=== PATIENT | male | born 1975 | race Caucasian/White ===

== ENCOUNTER 2019-02-07 06:56 | Emergency (ER) | payer MEDICAID, OTHER ==
[2019-02-07] MEDS ORDERED: diphenhydrAMINE 50 MG/ML 1 ML VIAL IVP STA (07:08)
[2019-02-07] MEDS ORDERED: methylPREDNISolone SOD SUCCI 125 MG/2 ML VIAL IV STA (07:08)
[2019-02-07] MEDS ORDERED: FAMOTIDINE 20 MG/2 ML VIAL IV STA (07:08)
[2019-02-07] MEDS ORDERED: SODIUM CHLORIDE 0.9% 1,000 ML IV ONE (07:09)
[2019-02-07] MEDS ORDERED: cefTRIAXone IN SWFI 1,000 MG/10 ML SYRINGE IVP STA (07:09)
--- NOTE | 2019-02-07 07:18 | ED ---
ENT HPI - General Chief complaint: ENT Stated complaint: Sore Throat, Difficulty Breathing Time Seen by Provider: 02/07/19 07:05 Source: patient, RN notes reviewed Mode of arrival: ambulatory Limitations: no limitations - History of Present Illness Initial comments: 43-year-old male presents emergency Department chief complaint of throat swelling. Patient states he slept with the window open a fan on. Patient states he woke up and he states he has difficulty swallowing. Patient states his uvula is very swollen. He states it has gone down since taking some ibuprofen. Patient denies fever, chills, headache or dizziness. Patient states never had any like this in the past no prior throat surgeries including adenoidectomy or tonsillectomy. Patient does admit that he sleeps with his mouth open and may have underlying sleep apnea. - Related Data Home Medications Medication Instructions Recorded Confirmed Metoprolol Tartrate [Lopressor] 100 mg PO BID 02/07/19 02/07/19 Previous Rx's Medication Instructions Recorded Azithromycin [Zithromax Z-pack] 0 mg PO DIRECTED #1 pack 02/07/19 predniSONE 50 mg PO DAILY #5 tab 02/07/19 Allergies Allergy/AdvReac Type Severity Reaction Status Date / Time Penicillins Allergy Rash/Hives Verified 02/07/19 07:31 Review of Systems ROS Statement: Those systems with pertinent positive or pertinent negative responses have been documented in the HPI. ROS Other: All systems not noted in ROS Statement are negative. Past Medical History Past Medical History: Hypertension History of Any Multi-Drug Resistant Organisms: None Reported Past Surgical History: No Surgical Hx Reported Past Psychological History: No Psychological Hx Reported Smoking Status: Never smoker Past Alcohol Use History: Occasional Past Drug Use History: None Reported General Exam Limitations: no limitations General appearance: alert, in no apparent distress Head exam: Present: atraumatic, normocephalic, normal inspection Eye exam: Present: normal appearance, PERRL, EOMI. Absent: scleral icterus, conjunctival injection, periorbital swelling ENT exam: Present: mucous membranes moist, TM's normal bilaterally, normal external ear exam. Absent: normal oropharynx (Edematous uvula, patient notes noted to be gagging, no drooling, swallowing secretions well, mild erythema) Neck exam: Present: normal inspection, full ROM. Absent: tenderness, meningismus, lymphadenopathy Respiratory exam: Present: normal lung sounds bilaterally. Absent: respiratory distress, wheezes, rales, rhonchi, stridor Cardiovascular Exam: Present: regular rate, normal rhythm, normal heart sounds. Absent: systolic murmur, diastolic murmur, rubs, gallop, clicks Neurological exam: Present: alert, oriented X3, CN II-XII intact Skin exam: Present: warm, dry, intact, normal color. Absent: rash Course Vital Signs 02/07/19 02/07/19 02/07/19 07:01 08:20 08:28 Temperature 98.8 F Pulse Rate 60 60 64 Respiratory 20 Rate Blood Pressure 161/85 O2 Sat by Pulse 97 Oximetry 02/07/19 09:24 Temperature Pulse Rate 60 Respiratory 20 Rate Blood Pressure 151/93 O2 Sat by Pulse 98 Oximetry Medical Decision Making - Medical Decision Making 43-year-old male presented for swelling of his throat. Patient has evidence of uvulitis. Patient was given racemic epinephrine, Solu-Medrol, Pepcid, Benadryl he does feel improved there is still mild amount of swelling currently. He states is notably breathing or difficulty swallowing. He was offered observation for repeat treatments and steroids he states he forgot home at this time. We did discuss close follow-up and strict return parameters. Disposition Clinical Impression: Uvulitis Disposition: HOME SELF-CARE Condition: Stable Instructions (If sedation given, give patient instructions): Uvulitis (ED) Additional Instructions: Please return to the Emergency Department if symptoms worsen or any other concerns. Prescriptions: predniSONE 50 mg PO DAILY #5 tab Azithromycin [Zithromax Z-pack] 0 mg PO DIRECTED #1 pack Is patient prescribed a controlled substance at d/c from ED?: No Referrals: None,Stated [Primary Care Provider] - 1-2 days Time of Disposition: 11:04
[2019-02-07] MEDS ORDERED: RACEPINEPHRINE 2.25% NEB 0.5 ML NEBU INHALATION STA (07:44)
--- NOTE | 2019-02-07 09:05 | XR ---
EXAMINATION TYPE: XR soft tissue neck DATE OF EXAM: 02/07/2019 COMPARISON: NONE HISTORY: Sore and swollen throat. Difficulty breathing since yesterday TECHNIQUE: 2 views of the soft tissues of the neck were obtained FINDINGS: There is straightening of usual cervical lordosis. No prevertebral soft tissue swelling is seen. No narrowing of the nasopharynx nor epiglottic airway. The epiglottis is unremarkable in size. Vallecula is visualized. Infraglottic airway appears grossly patent. Lung apices also appear well aer ated. IMPRESSION: No abnormal prevertebral soft tissue swelling nor narrowing of the supraglottic or infrag lottic visualized airway. Nasopharyngeal airway also appears patent.
[2019-02-07] MEDS ORDERED: hydrALAZINE HCL 20 MG/ML 1 ML VIAL IVP STA (11:01)
[2019-02-07 11:02] VITALS: RESP 16; TEMP 98.7
[2019-02-07 11:21] VITALS: BP 149/103; PULSE 73
== END 2019-02-07 11:15 | disposition home or self-care (01) ==
LOC: EC 06:56
DX: K12.2 Cellulitis and abscess of mouth (principal); I10 Essential (primary) hypertension; Z88.0 Allergy status to penicillin; Z79.899 Other long term (current) drug therapy
CPT/HCPCS: 94640; 70360; 99285; 96374; 96375 ×4; 96361; J0360; J1200; J2930; J0696

== ENCOUNTER 2020-05-05 01:58 | Emergency (ER) | payer OTHER ==
[2020-05-05 02:07] VITALS: BP 153/90; PULSE 79; RESP 18; TEMP 98.9
[2020-05-05] MEDS ORDERED: HYDROmorphone 1 MG/ML 1 ML SYRINGE IM STA (02:30)
[2020-05-05] MEDS ORDERED: diazePAM 5 MG TAB PO STA (02:30)
[2020-05-05] MEDS ORDERED: IBUPROFEN 800 MG TAB PO STA (02:30)
[2020-05-05] MEDS ORDERED: dexAMETHasone 4 MG TAB PO STA (02:30)
--- NOTE | 2020-05-05 02:31 | ED ---
Back Pain HPI - General Chief Complaint: Back Pain/Injury Stated Complaint: Back pain Time Seen by Provider: 05/05/20 02:09 Source: patient, RN notes reviewed, old records reviewed Limitations: no limitations - History of Present Illness Initial Comments: This is a 45-year-old male DF for evaluation patient to the ER for evaluation of significant back pain chronic acute on chronic back pain no new trauma. Pain worse today times last 2 or 3 days. Difficult to ambulate. No new traumas. No loss of bowel or bladder. No fevers. MD Complaint: back pain -: days(s) Similar Symptoms Previously: Yes Place: home Radiation: none Severity: severe Severity scale (1-10): 10 Quality: sharp Consistency: constant Improves With: immobilization Worsens With: movement, walking Context: while lifting, turning/twisting Associated Symptoms: denies other symptoms - Related Data Home Medications Medication Instructions Recorded Confirmed Metoprolol Tartrate [Lopressor] 100 mg PO BID 02/07/19 02/07/19 Previous Rx's Medication Instructions Recorded Azithromycin [Zithromax Z-pack] 0 mg PO DIRECTED #1 pack 02/07/19 predniSONE 50 mg PO DAILY #5 tab 02/07/19 Allergies Allergy/AdvReac Type Severity Reaction Status Date / Time Penicillins Allergy Rash/Hives Verified 05/05/20 02:07 Review of Systems ROS Statement: Those systems with pertinent positive or pertinent negative responses have been documented in the HPI. ROS Other: All systems not noted in ROS Statement are negative. Past Medical History Past Medical History: Hypertension History of Any Multi-Drug Resistant Organisms: None Reported Past Surgical History: No Surgical Hx Reported Past Psychological History: No Psychological Hx Reported Smoking Status: Never smoker Past Alcohol Use History: None Reported Past Drug Use History: Marijuana General Exam Limitations: no limitations General appearance: alert, in no apparent distress Head exam: Present: atraumatic, normocephalic, normal inspection Eye exam: Present: normal appearance, PERRL, EOMI. Absent: scleral icterus, conjunctival injection, periorbital swelling ENT exam: Present: normal exam, mucous membranes moist Neck exam: Present: normal inspection. Absent: tenderness, meningismus, lymphadenopathy Respiratory exam: Present: normal lung sounds bilaterally. Absent: respiratory distress, wheezes, rales, rhonchi, stridor Cardiovascular Exam: Present: regular rate, normal rhythm, normal heart sounds. Absent: systolic murmur, diastolic murmur, rubs, gallop, clicks GI/Abdominal exam: Present: soft, normal bowel sounds. Absent: distended, tenderness, guarding, rebound, rigid Extremities exam: Present: normal inspection, full ROM, normal capillary refill. Absent: tenderness, pedal edema, joint swelling, calf tenderness Back exam: Present: normal inspection Neurological exam: Present: alert, oriented X3, CN II-XII intact Psychiatric exam: Present: normal affect, normal mood Skin exam: Present: warm, dry, intact, normal color. Absent: rash Course Vital Signs 05/05/20 02:03 Temperature 98.9 F Pulse Rate 79 Respiratory 18 Rate Blood Pressure 153/90 O2 Sat by Pulse 94 L Oximetry - Reevaluation(s) Reevaluation #1: 05/05/20 03:03 Medical records reviewed Reevaluation #2: 05/05/20 03:03 Patient's pain is well-controlled and is able to amply without difficulty Reevaluation #3: 05/05/20 03:04 Patient informed of results and questions answered Medical Decision Making - Medical Decision Making 45 male acute on chronic back pain pain is controlled we'll treat pain at home w ith pain medication he can be discharged home - Radiology Data Radiology results: report reviewed (CT lumbar spine is chronic disc disease no herniation), image reviewed Disposition Clinical Impression: Mechanical back pain, Strain of lumbar region, Sciatica Disposition: HOME SELF-CARE Condition: Good Instructions (If sedation given, give patient instructions): Acute Low Back Pain (ED) Is patient prescribed a controlled substance at d/c from ED?: No Referrals: Emely Nazario MD [Primary Care Provider] - 1-2 days
--- NOTE | 2020-05-05 02:57 | CT ---
EXAMINATION TYPE: CT lumbar spine wo con DATE OF EXAM: 05/05/2020 COMPARISON: CT abdomen 01/08/2010 HISTORY: pain CT DLP: 1774.4 mGycm Automated exposure control for dose reduction was used. Images were obtained from the level of T11-S3 vertebra without contrast. Vertebra have normal alignment. There is narrowing of L5-S1 disc with vacuum disc and mild spurring. There is no compression fracture. The posterior elements are intact. The sacroiliac joints are intact . I see no bony destructive process. There is no lumbar paraspinal mass. Sacroiliac joints appear int act. There is no spinal stenosis. IMPRESSION: Minor degenerative disc changes in the lumbar spine mainly at L5-S1. No fracture seen. No spinal sten osis. No sign of any significant lumbar disc herniation.
[2020-05-05] MEDS ORDERED: traMADol 50 MG STARTER PACK 3 TAB BTL PO STA (03:02)
== END 2020-05-05 03:17 | disposition home or self-care (01) ==
LOC: EC 01:58
DX: S39.012A Strain of muscle, fascia and tendon of lower back, initial encounter (principal); G89.29 Other chronic pain; I10 Essential (primary) hypertension; Z79.899 Other long term (current) drug therapy; Z88.0 Allergy status to penicillin; X58.XXXA Exposure to other specified factors, initial encounter
CPT/HCPCS: 72131; 99284; 96372; J8540; J1170

== ENCOUNTER → 2020-10-04 | Outpatient (CLI) | payer OTHER ==
--- NOTE | 2020-10-04 18:39 | CONS ---
CONSULTATION DATE OF SERVICE: 10/04/2020 This is a 45-year-old gentleman who has been evaluated in the sleep center for possible obstructive sleep apnea-hypopnea syndrome. HISTORY OF PRESENT ILLNESS/SLEEP-WAKE EVALUATION: Patient's usual sleep schedule on weekdays is from 11 or 11:30 p.m. until 6 or 6:15 a.m., on weekends from 11 or 12 midnight until 9:30 a.m. No problems with falling asleep, although he has a TV in the bedroom. He sleeps in different positions. According to his , he has extremely loud snoring and witnessed episodes of stopped breathing during sleep. The patient also has some restless leg symptoms and kicking at night, positive history of sleeptalking. The patient wakes up from sleep 3 times with 3 episodes of nocturia. In the morning the patient wakes up tired, falling asleep during the day. He has episodes of irritability. [place] Sleepiness Scale is significantly increased to 14. PAST MEDICAL HISTORY: Positive for hypertension and hyperlipidemia. PAST SURGICAL HISTORY: None. MEDICATIONS: 1. Atorvastatin 10 mg once a day. 2. Metoprolol 100 mg twice a day. 3. Hydralazine 100 mg twice a day. SOCIAL HISTORY: Positive for smoking for about 25 pack/years; quit 3 years ago. Alcohol consumption: None at the present time. FAMILY HISTORY: Positive for sleep apnea, diabetes. REVIEW OF SYSTEMS: Multiple awakenings from sleep, sleepiness during the day, loud snoring, kicking with his legs. PHYSICAL EXAMINATION: GENERAL: A pleasant gentleman without distress. VITAL SIGNS: BP 160/93, HR 62, RR 15, height 5 feet 9 inches, weight 291.6, BMI 43.1, temperature 98.1, oxygen saturation at room air 94%. HEENT: PERRLA, EOMI. Evaluation of oropharynx showed tongue protrudes midline. Extremely low position of soft palate. Mallampati IV. NECK: Supple. No JVD. Thyroid is not palpable. Wide neck. LUNGS: Clear to percussion and to auscultation. Good air exchange. No wheezing or rhonchi. HEART: S1, S2 regular. No murmurs, gallops or rubs. ABDOMEN: Obese. EXTREMITIES: No clubbing or cyanosis. PILLAR MAN: Awake, alert, and oriented X3. Cranial nerves 2 to 7 intact. There is no fasciculation or atrophy. noted. No focal deficits observed. IMPRESSION: 1. Loud snoring, witnessed episodes of stopped breathing during sleep, extremely low position of soft palate, wide neck, obesity, sleepiness; obstructive sleep apnea- hypopnea syndrome, possibly in severe range. 2. Obesity; BMI 43.1. 3. Hypertension. 4. Hyperlipidemia. 5. Restless leg symptoms; kicking during the night; possibly periodic limb movement syndrome. PLAN: 1. Polysomnography for evaluation of patient's breathing during sleep and also to check for possible periodic limb movements. 2. CPAP/BiPAP titration if sleep study confirms obstructive sleep apnea-hypopnea syndrome. 3. Preferable position during sleep on the side. 4. No driving if patient feels any sleepiness. 5. I will see patient for follow up visit to explain results of testing and following plan. Thank you very much for referring this patient for consultation. Sincerely, Markell Lee MD, PhD, FAASM Diplomat of [employer] [employer] [employer] [facility] [place] MMODL / YUMIKO: [id number] /
== END | disposition home or self-care (01) ==
LOC: SLEEP 16:02
PROVIDERS: ATTEND Internal Medicine
DX: G47.33 Obstructive sleep apnea (adult) (pediatric) (principal); G47.69 Other sleep related movement disorders; E66.9 Obesity, unspecified; I10 Essential (primary) hypertension; E78.5 Hyperlipidemia, unspecified; Z68.41 Body mass index [BMI] 40.0-44.9, adult; Z79.899 Other long term (current) drug therapy
CPT/HCPCS: 99211

== ENCOUNTER 2020-11-15 21:52 | Emergency (ER) | payer OTHER ==
[2020-11-15 22:00] VITALS: TEMP 98.3
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
[2020-11-15 23:11] LABS: Basophils # (A) 0.1 k/uL (0-0.2); Basophils % (A) 1 %; Eosinophils # (A) 0.2 k/uL (0-0.7); Eosinophils % (A) 2 %; HCT 51.2 % (39.0-53.0); HGB 17.4 gm/dL (13.0-17.5); Lymphocytes # (A) 2.3 k/uL (1.0-4.8); Lymphocytes % (A) 30 %; MCH 31.6 pg (25.0-35.0); Mean Platelet Volume 7.6; Monocytes # (A) 0.6 k/uL (0-1.0); Monocytes % (A) 8 %; Neutrophils # (A) 4.4 k/uL (1.3-7.7); Neutrophils % (A) 58 %; Platelet Count 204 k/uL (150-450); WBC 7.7 k/uL (3.8-10.6)
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
[2020-11-15 23:38] LABS: African American GFR (CKD) >90 (>60 ml/min/1.73 sqM); Anion Gap 10 mmol/L; Blood Urea Nitrogen 13 mg/dL (9-20); Calcium 9.5 mg/dL (8.4-10.2); Carbon Dioxide 25 mmol/L (22-30); Chloride 101 mmol/L (98-107); Glucose 121 mg/dL (74-99); Non-African American GFR(CKD) >90 (>60 ml/min/1.73 sqM); Potassium 4.4 mmol/L (3.5-5.1); Sodium 136 mmol/L (137-145)
[2020-11-16 00:44] VITALS: BP 162/83; PULSE 76; RESP 18
== END 2020-11-16 00:44 | disposition home or self-care (01) ==
LOC: EC 21:52
DX: M54.5 Low back pain (principal); M54.6 Pain in thoracic spine; I10 Essential (primary) hypertension; Z88.0 Allergy status to penicillin; Z87.891 Personal history of nicotine dependence; V89.2XXA Person injured in unspecified motor-vehicle accident, traffic, initial encounter; Y92.410 Unspecified street and highway as the place of occurrence of the external cause
CPT/HCPCS: 36415; 71046; 72072; 72100; 80048; 85025; 99284

== ENCOUNTER → 2021-03-28 | Outpatient (CLI) | payer OTHER ==
--- NOTE | 2021-03-28 23:37 | SFUN ---
SLEEP CENTER FOLLOW UP NOTE DATE OF SERVICE: 03/28/2021 45-year-old gentleman has been followed in Sleep Center for treatment of obstructive sleep apnea-hypopnea syndrome. Recently, the patient had a sleep study which showed extremely severe obstructive sleep apnea-hypopnea syndrome and subsequently after the patient had PAP titration and received his BiPAP unit. Today is his first visit after he was started on treatment with BiPAP. The patient is trying to use BiPAP equipment every night, but feels that the pressure is too high when he puts the mask on and developed sometimes dryness in the mouth, sometimes too much water in the mouth. [place] Sleepiness Scale today is borderline 10. I checked his BiPAP unit. The BiPAP pressure is 18/14 cm of water, usage is 28/30 nights for more than 4 hours, average 6.2 hours per night, which is good compliance. High leak 116 L/minute. Apnea-hypopnea index is 5.9, which is borderline. Humidity is at 4. Ramp is off. MEDICATIONS: Atorvastatin 10 mg once a day. Metoprolol 100 mg twice a day. Hydralazine 100 mg twice a day. PHYSICAL EXAMINATION: GENERAL: Patient in no distress. BP 145/84, HR 64, RR 15, weight 279, temp 98.5, oxygen saturation at room air 93%. Oropharynx: Extremely low position of soft palate. Mallampati 4. NECK: Supple, no JVD. Thyroid is not palpable. LUNGS: Clear to percussion and to auscultation. Good air exchange. No wheezing or rhonchi. HEART: S1, S2 regular. No murmurs, gallops, or rubs. ABDOMEN: Obese. Soft and nontender. Bowel sounds are present. No organomegaly appreciated. EXTREMITIES: No clubbing or cyanosis. DIGITAL PROOFING AND PLATEMAKER: Awake, alert, and oriented X3. Cranial nerves 2 to 7 intact. There is no fasciculation or atrophy. noted. No focal deficits observed. IMPRESSION: 1. Extremely severe obstructive sleep apnea-hypopnea syndrome; apnea-hypopnea index 101.7 with oxygen desaturation to 64%. The patient demonstrated great compliance with treatment benefitting from treatment. Apnea-hypopnea index reduced to 5.9 by reading from the machine. 2. Obesity. 3. Hypertension. 4. Hyperlipidemia. 5. Periodic limb movements, significant periodic limb movements during titration and no information about periodic limb movements during the diagnostic night because it was done as a home sleep apnea test. PLAN: 1. I increased ramp to 20 minutes and explained patient how to adjust REM time. 2. I increased humidity to level of 6 and explained patient how to adjust humidity. 3. I changed regimen of the machine to VPAP mode with maximal inspiratory pressure 19 and minimal expiratory pressure 8. 4. I explained patient about position of the machine. He should put the machine lower than his head to avoid getting any water to the mask. 5. Sleep hygiene with regular time in bed for at least 7-1/2 to 8 hours. 6. Precautions related to driving. No driving if feeling sleepiness. 7. I will maintain all necessary prescription for PAP supplies including mask, tube, filters. 8. Watching weight. 9. Follow-up visit in 6 months or earlier if patient has any problems. 10.And everything has just ache from my template continue from this point down template until end of the dictation and. Thank you very much for allowing me to participate in management of your patient. Sincerely, Markell Lee MD, PhD, FAASM Diplomat of [employer] Sleep Medicine Board of [employer] [facility] [place] MMODL / SARAHN: [id number] /
== END | disposition home or self-care (01) ==
LOC: SLEEP 16:16
PROVIDERS: ATTEND Internal Medicine
DX: G47.33 Obstructive sleep apnea (adult) (pediatric) (principal); E66.9 Obesity, unspecified; I10 Essential (primary) hypertension; E78.5 Hyperlipidemia, unspecified; G47.61 Periodic limb movement disorder

== ENCOUNTER → 2021-09-25 | Outpatient (CLI) | payer OTHER ==
--- NOTE | 2021-09-25 17:49 | SFUN ---
SLEEP CENTER FOLLOW UP NOTE DATE OF SERVICE: 09/25/2021 INTERVAL HISTORY: 46-year-old gentleman has been followed in Sleep Center for treatment of obstructive sleep apnea-hypopnea syndrome. Patient continues to use CPAP equipment every night for the whole night. Cannot sleep without machine, likes it, sleeps better with the machine and feels better during the day. [place] Sleepiness Scale today is slightly increased to 11. I checked his BiPAP unit. Maximal inspiratory pressure 19, minimal expiratory pressure 8, pressure support 4, average pressure 15.7/11.7, usage is 30/30 nights for more than 4 hours, average 7.3 hours per night. Leak is increased to 64 L/minute but apnea- hypopnea index is 2.3 which is normal. MEDICATIONS: Hydralazine 100 mg twice a day, metoprolol 100 mg once a day, atorvastatin 10 mg once a day. PHYSICAL EXAMINATION: GENERAL: Patient in no distress. BP 144/82, HR 65, RR 18, height 5 feet 8-3/4 inches, weight 283.6 pounds, body mass index 42.1, temperature 97.7, oxygen saturation at room air 95%. Oropharynx: Extremely low position of soft palate, Mallampati 4. NECK: Supple, no JVD. Thyroid is not palpable. LUNGS: Clear to percussion and to auscultation. Good air exchange. No wheezing or rhonchi. HEART: S1, S2 regular. No murmurs, gallops, or rubs. ABDOMEN: Slightly obese. Soft and nontender. Bowel sounds are present. No organomegaly appreciated. EXTREMITIES: No clubbing or cyanosis. ICE HOUSE SUPERVISOR: Awake, alert, and oriented X3. Cranial nerves 2 to 7 intact. There is no fasciculation or atrophy. noted. No focal deficits observed. IMPRESSION: 1. Extremely severe obstructive sleep apnea-hypopnea syndrome apnea-hypopnea index 101.7 with oxygen desaturation to 64%. The patient demonstrated 100% compliance with treatment, benefitting from treatment. Totally normalization of breathing during the sleep on BiPAP. 2. Obesity, the patient increased his weight on 4 pounds since previous visit. Body mass index 42.1. 3. Hypertension. 4. Hyperlipidemia. 5. Significant periodic limb movements during the sleep study. No complaints from the patient on leg movements at the present time. PLAN: 1. Patient will continue to use PAP equipment every night for the whole night. 2. Sleep hygiene with regular time in bed for at least 7-1/2 to 8 hours. 3. Precautions related to driving. No driving if feeling sleepiness. 4. I will maintain all necessary prescription for PAP supplies including mask, tube, filters. 5. Watching weight. 6. Follow-up visit in 6 months or earlier if patient has any problems. Thank you very much for allowing me to participate in the management of your patient. Sincerely, Markell Lee MD, PhD, FAASM Diplomat of [employer] Sleep Medicine Board of [employer] Virology Teacher of [facility] [place] MMODL / IJN: [id number] /
== END ==
LOC: SLEEP 16:08
PROVIDERS: ATTEND Internal Medicine
DX: G47.33 Obstructive sleep apnea (adult) (pediatric) (principal); E66.9 Obesity, unspecified; Z68.41 Body mass index [BMI] 40.0-44.9, adult; I10 Essential (primary) hypertension; E78.5 Hyperlipidemia, unspecified

== ENCOUNTER → 2022-04-23 | Outpatient (CLI) | payer OTHER ==
--- NOTE | 2022-04-23 17:32 | P.PN ---
Subjective DATE: 04/23/2022 FOLLOW UP VISIT. Patient with obstructive sleep apnea hypopnea syndrome return to sleep center for follow-up visit. Information from previous visit have been reviewed. Patient is using PAP equipment every night for the whole night, getting PAP supplies in time. The patient does not have significant problems with the mask, PAP unit and humidification. [place] sleepiness scale is 11. I checked information from PAP unit. BIPAP unit pressure maximal inspiratory pressure 19, minimal expiratory pressure of 8, average pressure of 15/11 cm H2O. Usage is 100 % for more then 4 hours, average 7.2 hours per night. Leak is 36 l/m, which is in acceptable range. Apnea Hypopnea Index is 1.5, which is normal. MEDICATIONS:1. Losartan 2. Metoprolol 3. Hydralazine 4. Atorvastatin During physical exam: GENERAL: A pleasant patient without any distress. VITAL SIGNS: BP 159/78, HR 70, RR 16 , weight to 81.8, temperature 97.4, oxygen saturation at room air 96 % . HEENT: PERRLA, EOMI.low position of soft palate, Mallapati 4 . NECK: Supple. No JVD. LUNGS: Clear to percussion and to auscultation. Good air exchange. No wheezing or rhonchi. HEART: S1, S2 regular. ABDOMEN: Soft and nontender. Obese EXTREMITIES: No clubbing or cyanosis. NATIONAL ACCOUNT EXECUTIVE: Awake, alert, and oriented x3. No focal deficit. Impressions: 1. Obstructive sleep apnea-hypopnea syndrome extremely severe apnea-hypopnea index 101.7. Patient demonstrated great compliance with treatment, benefiting from treatment. Normal respirations CPAP. 2. Obesity patient lost 2 pounds since previous visit. 3. Hypertension. 4. Hyperlipidemia. 5. Periodic limb movements have been documented during previous sleep study. Clinically no symptoms of periodic limb movements. Plan: 1. Continue using PAP equipment every night for the whole night. 2. To change air filter at least 1-2 times per month. 3. PAP unit should stay lower then position of the head. 4. Advised patient to remove all remaining water from humidifier canister daily and make it dry after each usage. Refill canister with fresh distilled water before each usage. 5. Sleep hygiene with regular time in bed for at least 8 hours. 6. Precautions related to driving. No driving if feel any sleepiness. 7. I will maintain prescription for PAP supplies including mask, tube, filters. 8. Follow up visit in 6 months or earlier if patient has any problems. 9. Watching weight. Thank you very much for allowing me to participate in the management of your patient. Markell Lee MD, PhD, FAASM. Diplomat of [place], Sleep Medicine Board by [place] [employer] Installer of [facility] [place]
== END | disposition home or self-care (01) ==
LOC: SLEEP 16:12
PROVIDERS: ATTEND Internal Medicine
DX: G47.33 Obstructive sleep apnea (adult) (pediatric) (principal); I10 Essential (primary) hypertension; E78.5 Hyperlipidemia, unspecified
CPT/HCPCS: 99212